=== PATIENT | male | born 1995 | race Caucasian/White ===

== ENCOUNTER 2016-11-05 22:46 | Inpatient (IN) ==
--- NOTE | 2016-11-06 00:31 | Emergency Department Note ---
Disposition Clinical Impression: Fever of unknown origin, Patient on antineoplastic chemotherapy regimen Testicular cancer Qualifiers: Descendance of testis: unspecified Laterality: unspecified laterality Qualified Code(s): C62.90 - Malignant neoplasm of unspecified testis, unspecified whether descended or undescended Leukocytosis Qualifiers: Leukocytosis type: unspecified Qualified Code(s): D72.829 - Elevated white blood cell count, unspecified Disposition: Admitted As Inpatient Condition: Fair Time of Disposition: 02:36 Fever HPI - General Chief Complaint: ED Fever Stated Complaint: fever on chemo Time Seen by Provider: 11/05/16 23:55 Source: patient Limitations: no limitations Nursing Notes Reviewed: Yes Vital Signs Reviewed: Yes - History of Present Illness HPI Narrative: 20-year-old male with a history of nonseminomatous testicular testicular cancer stage II, status post orchiectomy, on chemotherapy with bleomycin and cisplatin , at the [facility], patient bleomycin treatment 4 days ago on Thursday, at times white count was 13,000, he since had a fever at home of 101, URI symptoms including cough congestion low-grade fevers, mild nausea. Patient denies abdominal pain or dysuria. Oncologist is Dr. Hamilton. Pt Subjective Complaint: fever Onset (ago): day(s) Maximum Temperature Reported: 101 F Temperature Source: subjective Associated symptoms: Reports: denies other symptoms, nasal congestion, nausea. Denies: chest pain Improves with: acetaminophen Treatments prior to arrival fever: none - Related Data Allergies Allergy/AdvReac Type Severity Reaction Status Date / Time No Known Allergies Allergy Verified 11/05/16 22:50 All systems ED: reviewed and negative except as stated. Constitutional: Reports: fever, chills ENT ED: Denies: ear pain, throat pain Cardiovascular: Denies: chest pain, palpitations Respiratory: Reports: as per HPI, cough, dyspnea Gastrointestinal: Reports: as per HPI, nausea. Denies: abdominal pain Genitourinary: Denies: urgency, dysuria Musculoskeletal: Denies: back pain, neck pain Fever PMH - Past Medical History Medical history: Reports: cancer, malignancy - Social History Smoking Status: Never smoker Alcohol use: Reports: none Drug use: Reports: none Physical Exam Constitutional: shaved head, mildly tachycardic 20-year-old male in no acute distress, HEENT: NCAT, sclera anicteric, PERRLA bilaterally, normal external ears bilaterally, nasal septum nondeviated, average dentition, MMM Neck: normal inspection, neck is supple, trachea midline Resp: normal chest inspection, CTA bilaterally, no resp distress CV: Tachycardia no m/g/r GI: normal inspection, Soft, NTND, BS present Back: normal inspection, no tenderness to palpation Neuro: A&O3, no gross motor or sensory deficits bilaterally Skin: No rashes, skin warm, dry, intact - General Limitations: no limitations General appearance: alert, in no apparent distress Course Course Narrative: 20-year-old male with fever of unknown origin, chest x-ray urinalysis ordered basic lab work blood cultures and lactate - Consultations Consultation #1: I called [facility] #[phone] Hamilton patients oncologist, they will page Dr hamilton, to call back. Consultation #2: I did speak with Dr. Argueta call for Dr. Hamilton, he stated that the patient does have indication for admission, but does not need to be transferred to the [facility], I spoke with Dr. Davis at [place] our concologist , he recommends admission to the hospitalist, they are happy to see the patient consultation, for this discussion I started the patient on empiric Zosyn antibiotic, blood cultures were obtained, initial lactate was on elevated, Sirs criteria met but no source to show definitive sepsis suspect viral upper respiratory infection, however we will cover with broad-spectrum antibiotics at this time in case he is bacteremic Time: 02:35 Vital Signs Temperature 99.6 F 11/05/16 22:48 Pulse Rate 102 11/05/16 22:48 Respiratory Rate 18 11/05/16 22:48 Blood Pressure 120/70 11/05/16 22:48 O2 Sat by Pulse Oximetry 97 11/05/16 22:48 Temperature 98.3 F 11/06/16 02:00 Pulse Rate 71 11/06/16 02:00 Respiratory Rate 20 11/06/16 02:00 Blood Pressure 121/71 11/06/16 02:00 O2 Sat by Pulse Oximetry 97 11/06/16 02:00 Oxygen Delivery Oxygen Delivery Room Air Fever - MDM Narrative Medical decision making narrative: 20-year-old male with testicular cancer, recent chemotherapy leukocytosis started on empiric IV antibiotics IV fluids, admission to medicine service with oncology consultation - Differential Diagnosis Likely: cellulitis, fever of occult origin, community acquired pneumonia - Medical Records Medical records reviewed: Yes I reviewed the patient's medical records. - Lab Data Lab results reviewed: Yes I reviewed the patient's lab results. Result diagrams: 11/06/16 00:38 11/06/16 00:38 Lab Results 11/06/16 11/06/16 11/06/16 Range/Units 00:38 00:38 00:38 WBC 21.2 H (4.3-11.1) K/mcL RBC 4.53 (4.19-5.50) M/mcL Hgb 13.0 (12.9-16.9) g/dL Hct 38.2 (37.5-50.1) % MCV 84.3 (83.0-100.0) fL MCH 28.7 (28.0-33.3) pg MCHC 34.0 (31.6-35.5) g/dL RDW 12.6 (11.5-14.5) % Plt Count 215 (140-400) K/mcL MPV 8.0 L (9.4-12.4) fL Seg Neutrophils % 77.0 % Lymphocytes % 13.0 % Monocytes % 8.0 % Metamyelocytes % 2.0 H (0) % Neutrophils # 16.3 H (1.6-8.9) K/mcL Lymphocytes # 2.8 (0.6-4.6) K/mcL Monocytes # 1.7 H (0.0-1.3) K/mcL Reactive Lymphocytes Present A (Not Present) Toxic Granulation Present A (Not Present) Platelet Estimate Normal (Normal) Sodium 135 L (136-145) mEq/L Potassium 4.1 (3.5-4.5) mEq/L Chloride 101 (98-109) mEq/L Carbon Dioxide 23 (19-29) mEq/L BUN 15 (8-26) mg/dL Creatinine 0.87 (0.72-1.25) mg/dL Est GFR ( Amer) > 60 Est GFR (Non-Af Amer) > 60 BUN/Creatinine Ratio 17 (6-26) Glucose 110 H (70-99) mg/dL Calculated Osmolality 281 (280-300) Lactic Acid 0.9 (0.5-2.2) mmol/L Calcium 9.6 (8.6-10.8) mg/dL Total Bilirubin 0.3 (0.2-1.2) mg/dL Direct Bilirubin 0.2 (0.0-0.5) mg/dL Indirect Bilirubin 0.1 (0.0-1.2) mg/dL AST 23 (5-34) Units/L ALT 42 (0-55) Units/L Alkaline Phosphatase 131 H (38-126) Units/L Serum Total Protein 7.4 (6.0-8.3) g/dL Albumin 3.4 L (3.5-5.0) g/dL Globulin 4.0 H (2.4-3.5) g/dL Albumin/Globulin Ratio 0.9 L (1.1-2.2) Urine Color (Yellow) Urine Clarity (Clear) Urine pH (5.0-8.0) pH Units Ur Specific [place] (1.010-1.025) Urine Protein (Neg-Trace) mg/dL Urine Glucose (UA) (Normal) mg/dL Urine Ketones (Negative) mg/dL Urine Blood (Negative) Urine Nitrite (Negative) Urine Bilirubin (Negative) Urine Urobilinogen (Normal) mg/dL Ur Leukocyte Esterase (Negative) Ur Culture Indicated? (NO) 11/06/16 Range/Units 01:00 WBC (4.3-11.1) K/mcL RBC (4.19-5.50) M/mcL Hgb (12.9-16.9) g/dL Hct (37.5-50.1) % MCV (83.0-100.0) fL MCH (28.0-33.3) pg MCHC (31.6-35.5) g/dL RDW (11.5-14.5) % Plt Count (140-400) K/mcL MPV (9.4-12.4) fL Seg Neutrophils % % Lymphocytes % % Monocytes % % Metamyelocytes % (0) % Neutrophils # (1.6-8.9) K/mcL Lymphocytes # (0.6-4.6) K/mcL Monocytes # (0.0-1.3) K/mcL Reactive Lymphocytes (Not Present) Toxic Granulation (Not Present) Platelet Estimate (Normal) Sodium (136-145) mEq/L Potassium (3.5-4.5) mEq/L Chloride (98-109) mEq/L Carbon Dioxide (19-29) mEq/L BUN (8-26) mg/dL Creatinine (0.72-1.25) mg/dL Est GFR ( Amer) Est GFR (Non-Af Amer) BUN/Creatinine Ratio (6-26) Glucose (70-99) mg/dL Calculated Osmolality (280-300) Lactic Acid (0.5-2.2) mmol/L Calcium (8.6-10.8) mg/dL Total Bilirubin (0.2-1.2) mg/dL Direct Bilirubin (0.0-0.5) mg/dL Indirect Bilirubin (0.0-1.2) mg/dL AST (5-34) Units/L ALT (0-55) Units/L Alkaline Phosphatase (38-126) Units/L Serum Total Protein (6.0-8.3) g/dL Albumin (3.5-5.0) g/dL Globulin (2.4-3.5) g/dL Albumin/Globulin Ratio (1.1-2.2) Urine Color Yellow (Yellow) Urine Clarity Clear (Clear) Urine pH 6.0 (5.0-8.0) pH Units Ur Specific [place] 1.008 L (1.010-1.025) Urine Protein Negative (Neg-Trace) mg/dL Urine Glucose (UA) Normal (Normal) mg/dL Urine Ketones Negative (Negative) mg/dL Urine Blood Negative (Negative) Urine Nitrite Negative (Negative) Urine Bilirubin Negative (Negative) Urine Urobilinogen Normal (Normal) mg/dL Ur Leukocyte Esterase Negative (Negative) Ur Culture Indicated? NO (NO) - Radiology Data Radiology results reviewed: Yes I reviewed the patient's radiology results. Chest X-Ray 11/05/16 23:55 IMPRESSION: No acute process. D/ / Landry Thorne MD / Landry Thorne MD Interpreting Provider: Landry Thorne MD Attestation Statement - Attestation Attestation: I, Jose Alberto Medina MD, personally evaluated this patient and discussed their management with the resident physician. I reviewed the resident's note and agree with the documented findings, medical decision making, and plan of care. 20-year-old male with history of testicular cancer and on chemotherapy presents to the emergency department with a complaint of a fever. He last had chemotherapy 2 days ago. He states that this morning he had a temperature of 100.3 and has not felt well all day. He has had a cough and some chest congestion. No sputum production. This evening his temperature went up to 101 and he came here for evaluation. On examination patient is a well-developed well-nourished well-appearing young male in no acute distress. He is alert and oriented 3. There is no cyanosis or diaphoresis. Throat is clear with no injection or exudate and mucous membranes are moist. TMs are clear bilaterally. Neck supple and nontender with full range of motion. No meningismus. Chest is nontender to palpation. Breath sounds are clear and equal bilaterally. Heart regular rate and rhythm. Abdomen soft and nontender with normal bowel sounds. Blood cultures obtained. Labs reviewed. WBC 21.2. Chest x-ray negative. Dr. Eisenberg discussed the case with the oncologist on-call at [facility] he did not feel patient needed to be transferred admission here with IV antibiotics until cultures return and can then be switched to oral antibiotics. He also discussed with the oncologist fashion adviser here who agreed to see the patient in consultation. The hospitalist, Dr. Garcia, was consulted and accepted admission of the patient.
[2016-11-06 00:47] LABS: Hematocrit 38.2 % (37.5-50.1); Mean Corpuscular Hemoglobin 28.7 pg (28.0-33.3); Mean Corpuscular Volume 84.3 fL (83.0-100.0); Platelet Count 215 K/mcL (140-400); Red Blood Count 4.53 M/mcL (4.19-5.50); Red Cell Distribution Width 12.6 % (11.5-14.5)
[2016-11-06] MEDS: 0.9 % Sodium Chloride 1,000 ML IVC SCH ×3 (00:51→17:09)
[2016-11-06 01:01] LABS: Alanine Aminotransferase 42 Units/L (0-55); Albumin 3.4 g/dL (3.5-5.0); Albumin/Globulin Ratio 0.9 (1.1-2.2); Alkaline Phosphatase 131 Units/L (38-126); Aspartate Amino Transferase 23 Units/L (5-34); BUN/Creatinine Ratio 17 (6-26); Bilirubin,Direct 0.2 mg/dL (0.0-0.5); Bilirubin,Indirect 0.1 mg/dL (0.0-1.2); Bilirubin,Total 0.3 mg/dL (0.2-1.2); Blood Urea Nitrogen 15 mg/dL (8-26); Calcium 9.6 mg/dL (8.6-10.8); Carbon Dioxide 23 mEq/L (19-29); Chloride 101 mEq/L (98-109); Glucose 110 mg/dL (70-99); Osmolality,Calculated 281 (280-300); Potassium 4.1 mEq/L (3.5-4.5); Sodium 135 mEq/L (136-145); Total Protein 7.4 g/dL (6.0-8.3); eGFR For African Americans > 60; eGFR For Non-African Americans > 60
[2016-11-06 01:13] LABS: Lymphocytes # 2.8 K/mcL (0.6-4.6); Monocytes # 1.7 K/mcL (0.0-1.3); Neutrophils # 16.3 K/mcL (1.6-8.9)
[2016-11-06 01:14] LABS: Platelet Estimate Normal (Normal); Reactive Lymphocytes Present (Not Present); Toxic Granulation Present (Not Present)
[2016-11-06 01:27] LABS: Bilirubin,Urine Negative (Negative); Blood,Urine Negative (Negative); Clarity,Urine Clear (Clear); Color,Urine Yellow (Yellow); Glucose,Urine (UA) Normal (Normal); Ketones,Urine Negative (Negative); Leukocyte Esterase,Urine Negative (Negative); Nitrite,Urine Negative (Negative); Protein,Urine Negative (Neg-Trace); Specific Gravity,Urine 1.008 (1.010-1.025); Urobilinogen,Urine Normal (Normal)
[2016-11-06] MEDS ORDERED: Piperacillin/Tazobactam 3.375 GM in D5% in Water (Mini-Bag+) 100 ML IVPB ONE (02:04)
[2016-11-06] MEDS ORDERED: Acetaminophen 325 MG TABLET PO PRN (02:46)
[2016-11-06] MEDS ORDERED: Ondansetron 4 MG/2 ML VIAL IVP PRN (02:46)
[2016-11-06] MEDS ORDERED: Naloxone 0.4 MG/ML INJ IVP PRN (02:46)
--- NOTE | 2016-11-06 03:22 | Internal Med History&Physical ---
Date of Encounter: 11/06/16 Time of Encounter: 03:19 Assessment and Plan (1) SIRS (systemic inflammatory response syndrome) Current visit: Yes Status: Acute Patient reports a temperature of 101 degrees Fahrenheit at home. He has a white count of 21,000 and heart rate of greater than 90 on arrival to the emergency department. He is currently on chemotherapy after orchiectomy for his nonseminomatous testicular cancer. He has SIRS with suspected sepsis. Unknown source of infection. It could be possible it is vital versus related to scratches and bites from his dog. Patient has received intravenous Zosyn in the emergency room. He will be admitted to inpatient status. He will be given by mouth Levaquin and if he remains afebrile over the next 24 hours, can likely be discharged home tomorrow. Oncology has been consulted by emergency room. We will follow up the recommendations. (2) Testicular cancer Current visit: Yes Status: Chronic Status post orchiectomy and currently on chemotherapy. Oncology consultation. Qualifiers: Descendance of testis: descended Laterality: unspecified laterality Qualified Code(s): C62.10 - Malignant neoplasm of unspecified descended testis (3) Patient on antineoplastic chemotherapy regimen Current visit: Yes Status: Chronic Internal Medicine - H&P: HPI Chief complaint: Fever Admitted From: Emergency Dept Plans for Post Hospital Care: Home History of present illness: Mr. Pittman is a 20 year old male with a history of nonseminomatous testicular cancer who is currently on chemotherapy and presents to the emergency department due to fever and chills. The patient was in his usual state of health until 11/04/2016. On 11/05/2016 in the morning, the patient started experiencing fever and chills. On the evening of the same day, his temperature was 101 degrees Fahrenheit. He reports a dry cough but denies any sputum production. He reports intermittent chest pain in the middle of his chest that is worse with breathing and relieved with resting. He denies any palpitations or feeling lightheaded. He denies any shortness of breath, wheezing. He denies any headache or changes in his vision. He denies any nausea, vomiting, diarrhea, constipation or abdominal pain. He denies any urinary symptoms. Denies any rashes or bruising. The patient was in [place] early September. End of September, he was diagnosed with nonseminomatous testicular cancer. He underwent orchiectomy on 10/14/2016. Then, he began chemotherapy with bleomycin and cisplatin. He is currently finishing up his first cycle and he recently had chemotherapy on Thursday. In the emergency room, his oncologist at [facility] was contacted and they recommended admission but did not feel the need for the patient to be transferred to [facility]. Oncologist at [facility] was contacted and they recommended admission and that they would see the patient in consultation during the day. The patient has been given intravenous Zosyn for broad- spectrum coverage. Past Med Surg Social Fam HX - Past Medical History Attestation: Yes The following information was validated with the patient. Source: patient Medical history: cancer (Nonseminomatous testicular cancer), malignancy Psychiatric history: no psych history - Past Surgical History Surgical History: other (Orchiectomy) - Social History Smoking Status: Never smoker Smokeless Tobacco Status: No Alcohol use: none Drug use: none Current living situation: Home, With Family Activity Level: Independent ambulation, Very active Recent Out of Country Travel Within the Last 8 Weeks: Yes Exposure or Possible Exposure to Illness During Travel: No - Additional Family History Additional family history: Reviewed; not pertinent Internal Medicine - H&P: Meds Allergies No Known Allergies Allergy (Verified 11/05/16 22:50) All Systems PM: A 10-system review of systems was performed and is negative for pertinent findings except as documented above in the HPI. Review of systems: 10 systems have been reviewed and are negative except as mentioned in the history of present illness - Constitutional Vitals: Temp Pulse Resp BP Pulse Ox 98.3 F 71 20 121/71 97 11/06/16 02:00 11/06/16 02:00 11/06/16 02:00 11/06/16 02:00 11/06/16 02:00 Exam: Gen.: Lying in bed. No acute distress. Eyes: Pupils equal, round and reactive to light. Extraocular muscles intact. ENT: Moist mucous membranes. No oropharyngeal erythema or discharge. Chest: Clear to auscultation bilaterally. No adventitious sounds present. CVS: First and second heart sounds present. No murmurs, rubs or gallops. Abdomen: Soft, nontender, nondistended. Bowel sounds present. No hepatosplenomegaly. Skin: No decubitus ulcers appreciated. Scratch jones over his arms bilaterally (patient reports this is due to scratching by his 1-year-old dog) WHEEL PRESSER: No focal neuro deficits present. Psychiatric: Alert, awake and oriented to time, place and person. Lymphatic system: No lymphadenopathy appreciated Internal Med - H&P Results - Labs CBC & Chem 7: 11/06/16 00:38 11/06/16 00:38 - Diagnostic Studies Chest x-ray Status: image reviewed by me (No acute abnormalities detected)
[2016-11-06] MEDS: Acetaminophen 325 MG TABLET PO PRN ×2 (08:43→19:48)
[2016-11-06] MEDS ORDERED: Levofloxacin 750 MG/150 ML 750 MG/150 ML BAG IVPB SCH (12:00)
--- NOTE | 2016-11-06 13:41 | Oncology Inp Consult Note ---
Date of Encounter: 11/06/16 Time of Encounter: 12:00 Assessment and Plan (1) Fever Status: Acute Assessment and plan: Mr. Pittman appears to have a great fever without overt infection. He received Zosyn in the emergency department and has been transitioned to Levaquin which I think is reasonable. Agree with the excellent care he is received today by the hospitalist team. If he remains afebrile next 24 hours, I think he may be discharged on Levaquin 7 days. Qualifiers: Qualified Code(s): R50.9 - Fever, unspecified (2) Testicular cancer Status: Chronic Assessment and plan: For his stage II nonseminomatous testicular cancer, he will follow-up with Dr. Aguiar after discharge. Further oncologic care to be deferred to his outpatient care team. Qualifiers: Descendance of testis: descended Laterality: unspecified laterality Qualified Code(s): C62.10 - Malignant neoplasm of unspecified descended testis - Data of Consult Requesting Physician: Jarrod Saldana MD Primary Care Provider: PCP NO - Consult Narrative Reason for consult: Testicular cancer with fever History of present illness: Mr. Pittman is a 20 year old male who was recently diagnosed with nonseminomatous testicular cancer. He is status post orchiectomy and has been placed on cycle # 1 BEP and completed his first full cycle this past Thursday. Under care of Dr. Jaylen Aguiar at [facility]. Patient developed fever as well as cough with associated pleuritic chest pain prompting him to come to the emergency department. In the emergency department, his white blood cell count was elevated 21,000, chest x- ray and urinalysis were both clear of infection. He was tachycardic and secondary to presence of SIRS, admission was recommended. He has been placed on broad-spectrum antibiotics and admitted to the hospital. This morning, he is feeling a bit better. He did have a temperature of 100.4. He still has a mild cough which is nonproductive. Her chest pain is mild but present. He is tired as he had a long night in the emergency department. Past Med Surg Social Fam HX - Past Medical History Medical history: cancer, malignancy Psychiatric history: no psych history - Past Surgical History Surgical History: other - Social History Smoking Status: Never smoker Smokeless Tobacco Status: No Alcohol use: none Drug use: none Medications and Allergies Ibuprofen [Motrin] 400 mg PO Q6HR PRN 11/06/16 [History] LORazepam [Ativan] 0.5 mg PO Q6H PRN 11/06/16 [History] Prochlorperazine Maleate [Compazine] 10 mg PO Q6HR PRN 11/06/16 [History] Tramadol HCl [Ultram] 50 mg PO Q6H PRN 11/06/16 [History] Allergies No Known Allergies Allergy (Verified 11/05/16 22:50) All systems: reviewed and no additional remarkable complaints except as stated Constitutional: Present: chills, night sweats Oncology - Exam - Constitutional Vitals: Temp Pulse Resp BP Pulse Ox 98.6 F 71 15 123/67 97 11/06/16 11:43 11/06/16 11:43 11/06/16 11:43 11/06/16 11:43 11/06/16 11:43 - Head Head exam: Present: atraumatic, normal inspection, normocephalic - Eye Eye exam: Present: conjuntiva pink, sclera anicteric - ENT ENT exam: Present: mucous membranes moist, normal oropharynx - Neck Neck exam: Present: full ROM, normal inspection - Respiratory Respiratory exam: Present: CTAB - Cardiovascular Cardiovascular exam: Present: RRR - GI/Abdominal GI/Abdominal exam: Present: normal bowel sounds, soft - Extremities Exam Extremities exam: Present: normal inspection - Neurological Exam Neurological exam: Present: alert, CN II-XII intact, oriented X3 Oncology - Results - Labs Labs: Laboratory Results - last 48 hr 11/06/16 11/06/16 11/06/16 00:38 00:38 00:38 WBC 21.2 H RBC 4.53 Hgb 13.0 Hct 38.2 MCV 84.3 MCH 28.7 MCHC 34.0 RDW 12.6 Plt Count 215 MPV 8.0 L Seg Neutrophils % 77.0 Lymphocytes % 13.0 Monocytes % 8.0 Metamyelocytes % 2.0 H Neutrophils # 16.3 H Lymphocytes # 2.8 Monocytes # 1.7 H Reactive Lymphocytes Present A Toxic Granulation Present A Platelet Estimate Normal Sodium 135 L Potassium 4.1 Chloride 101 Carbon Dioxide 23 BUN 15 Creatinine 0.87 Est GFR ( Amer) > 60 Est GFR (Non-Af Amer) > 60 BUN/Creatinine Ratio 17 Glucose 110 H Calculated Osmolality 281 Lactic Acid 0.9 Calcium 9.6 Total Bilirubin 0.3 Direct Bilirubin 0.2 Indirect Bilirubin 0.1 AST 23 ALT 42 Alkaline Phosphatase 131 H Serum Total Protein 7.4 Albumin 3.4 L Globulin 4.0 H Albumin/Globulin Ratio 0.9 L Urine Color Urine Clarity Urine pH Ur Specific [place] Urine Protein Urine Glucose (UA) Urine Ketones Urine Blood Urine Nitrite Urine Bilirubin Urine Urobilinogen Ur Leukocyte Esterase Ur Culture Indicated? Infectious Dougherty Assay 11/06/16 11/06/16 01:00 11:44 WBC RBC Hgb Hct MCV MCH MCHC RDW Plt Count MPV Seg Neutrophils % Lymphocytes % Monocytes % Metamyelocytes % Neutrophils # Lymphocytes # Monocytes # Reactive Lymphocytes Toxic Granulation Platelet Estimate Sodium Potassium Chloride Carbon Dioxide BUN Creatinine Est GFR ( Amer) Est GFR (Non-Af Amer) BUN/Creatinine Ratio Glucose Calculated Osmolality Lactic Acid Calcium Total Bilirubin Direct Bilirubin Indirect Bilirubin AST ALT Alkaline Phosphatase Serum Total Protein Albumin Globulin Albumin/Globulin Ratio Urine Color Yellow Urine Clarity Clear Urine pH 6.0 Ur Specific [place] 1.008 L Urine Protein Negative Urine Glucose (UA) Normal Urine Ketones Negative Urine Blood Negative Urine Nitrite Negative Urine Bilirubin Negative Urine Urobilinogen Normal Ur Leukocyte Esterase Negative Ur Culture Indicated? NO Infectious Dougherty Assay Negative Consult Discharge Plan - Plan Referrals: NO,PCP [Primary Care Provider] -
[2016-11-06 19:23] LABS: Adenovirus Not Detected (Not Detect); Bordetella Pertussis Not Detected (Not Detect); Chlamydophila pneumoniae Not Detected (Not Detect); Coronavirus 229E Not Detected (Not Detect); Coronavirus HKU1 Not Detected (Not Detect); Coronavirus NL63 Not Detected (Not Detect); Coronavirus OC43 Not Detected (Not Detect); Human Metapneumovirus Not Detected (Not Detect); Human Rhinovirus/Enterovirus Not Detected (Not Detect); Influenza A Subtype 2009 H1 Not Detected (Not Detect); Influenza A Untypeable Not Detected (Not Detect); Influenza B Not Detected (Not Detect); Mycoplasma pneumoniae Not Detected (Not Detect); Parainfluenza Virus 1 Not Detected (Not Detect); Parainfluenza Virus 2 Not Detected (Not Detect); Parainfluenza Virus 3 Not Detected (Not Detect); Parainfluenza Virus 4 Not Detected (Not Detect); Respiratory Syncytial Virus Not Detected (Not Detect)
[2016-11-07] MEDS: 0.9 % Sodium Chloride 1,000 ML IVC SCH (04:00)
[2016-11-07 06:33] LABS: Basophils # 0.1 K/mcL (0.0-0.2); Basophils % 0.5 %; Eosinophils % 0.1 %; Hematocrit 39.2 % (37.5-50.1); Hemoglobin 13.1 g/dL (12.9-16.9); Immature Granulocytes % 4.6 % (0-4); Lymphocytes # 1.7 K/mcL (0.6-4.6); Lymphocytes % 9.1 %; Mean Corpuscular HGB Conc 33.4 g/dL (31.6-35.5); Mean Corpuscular Volume 83.8 fL (83.0-100.0); Mean Platelet Volume 7.9 fL (9.4-12.4); Monocytes # 1.4 K/mcL (0.0-1.3); Monocytes % 7.6 %; Neutrophils # 14.3 K/mcL (1.6-8.9); Platelet Count 224 K/mcL (140-400); Red Blood Count 4.68 M/mcL (4.19-5.50); Segmented Neutrophils % 78.1 %
[2016-11-07 06:48] LABS: Alanine Aminotransferase 39 Units/L (0-55); Albumin 3.3 g/dL (3.5-5.0); Albumin/Globulin Ratio 0.8 (1.1-2.2); Alkaline Phosphatase 132 Units/L (38-126); Aspartate Amino Transferase 19 Units/L (5-34); BUN/Creatinine Ratio 8 (6-26); Bilirubin,Total 0.6 mg/dL (0.2-1.2); Blood Urea Nitrogen 7 mg/dL (8-26); Carbon Dioxide 26 mEq/L (19-29); Chloride 103 mEq/L (98-109); Globulin 4.3 g/dL (2.4-3.5); Glucose 103 mg/dL (70-99); Osmolality,Calculated 280 (280-300); Potassium 4.2 mEq/L (3.5-4.5); Sodium 136 mEq/L (136-145); Total Protein 7.6 g/dL (6.0-8.3); eGFR For African Americans > 60; eGFR For Non-African Americans > 60
[2016-11-07 08:15] VITALS: BP 124/72
[2016-11-07] MEDS ORDERED: levoFLOXacin 750 MG TABLET PO SCH (10:15)
--- NOTE | 2016-11-07 10:17 | Discharge Summary ---
Date of Encounter: 11/07/16 Time of Encounter: 10:14 - Discharge Diagnosis (1) SIRS (systemic inflammatory response syndrome) Priority: Primary Status: Acute Comments: unclear source, possible Sepsis secondary to acute bronchitis viral vs bacterial (2) Testicular cancer Priority: Secondary Status: Chronic Qualifiers: Descendance of testis: descended Laterality: unspecified laterality Qualified Code(s): C62.10 - Malignant neoplasm of unspecified descended testis (3) Leukocytosis Priority: Secondary Status: Acute Qualifiers: Leukocytosis type: unspecified Qualified Code(s): D72.829 - Elevated white blood cell count, unspecified (4) Fever Priority: Primary Status: Acute Qualifiers: Fever type: due to other condition Qualified Code(s): R50.81 - Fever presenting with conditions classified elsewhere - Discharge Medications Prescriptions: levoFLOXacin [Levaquin] 750 mg PO DAILY #5 tablet Home Medications: Ibuprofen [Motrin] 400 mg PO Q6HR PRN 11/06/16 [History] LORazepam [Ativan] 0.5 mg PO Q6H PRN 11/06/16 [History] Prochlorperazine Maleate [Compazine] 10 mg PO Q6HR PRN 11/06/16 [History] Tramadol HCl [Ultram] 50 mg PO Q6H PRN 11/06/16 [History] Acetaminophen [Tylenol] 650 mg PO Q6HR PRN #0 tablet 11/07/16 [Rx] levoFLOXacin [Levaquin] 750 mg PO DAILY #5 tablet 11/07/16 [Rx] Allergies/Adverse Reactions: Allergies No Known Allergies Allergy (Verified 11/05/16 22:50) Date of admission: 11/06/16 02:46 Primary care physician: PCP NO - Patient Status Disposition: Home, Self-Care Condition: Fair - Discharge Instructions Follow Up With: NO,PCP [Primary Care Provider] - Additional Instructions: Follow with primary care physician within the next 7 days. Follow with oncologist at [facility], [place] within the next 2 weeks, complete 5 more days of Levaquin. - Diet and Activity Activity: increase activity as tolerated Diet: regular diet Hospital course: Mr. Pittman is a 20 year old male with a history of nonseminomatous testicular cancer who is currently on chemotherapy , presented to the emergency department due to fever and chills. The patient was in his usual state of health until . On 11/05/2016 in the morning, the patient started experiencing fever and chills. On the evening of the same day, his temperature was 101 degrees Fahrenheit. He reported a dry cough but denies any sputum production. He reported intermittent chest pain in the middle of his chest that was worse with breathing and relieved with resting. He denies any palpitations or feeling lightheaded. He denies any shortness of breath, wheezing. No increased chest pain when stretching. The patient was in [place] early September. End of September, he was diagnosed with nonseminomatous testicular cancer. He underwent orchiectomy on 10/14/2016. Then, he began chemotherapy with bleomycin and cisplatin. He finished up his first cycle on Thursday. In the emergency room, his oncologist at [facility] was contacted and they recommended admission but did not feel the need for the patient to be transferred to [facility]. Oncologist at [facility] was contacted and they recommended admission. The was given one dose of intravenous Zosyn. WBC was 21.2, was started on Levaquin , today his WBC decreased to 18.3. Had a fever of 100.2 yesterday, feels better. Respiratory panel was negative, Monotest was negative. Herpes antibodies are pending. Echocardiogram shows an ejection fraction of 65-70%, no other abnormalities and no evidence of pericarditis - Time Spent with Patient Total time spent providing and/or coordinating discharge services: Greater than 30 minutes (40 min) - Constitutional Vitals: Temp Pulse Resp BP Pulse Ox 98.7 F 74 14 124/72 96 11/07/16 08:03 11/07/16 08:03 11/07/16 08:03 11/07/16 08:03 11/07/16 08:03 - Head Head exam: Present: atraumatic, normocephalic - Eye Eye exam: Present: PERRL, conjuntiva pink, sclera anicteric Pupils: Present: PERRL - Neck Neck exam general surgery: Present: supple, trachea midline. Absent: lymphadenopathy - Respiratory Respiratory exam: Present: CTAB. Absent: accessory muscle use, rales, rhonchi, wheezes - Cardiovascular Cardiovascular exam: Present: RRR, +S1, +S2. Absent: diastolic murmur, gallop, rubs, systolic murmur - GI/Abdominal GI/Abdominal exam: Present: normal bowel sounds, soft, no peritoneal signs. Absent: distended, tenderness - Extremities Exam Extremities exam: Present: warm, radial pulses palpable and symetrical. Absent : calf tenderness, cyanotic, pedal edema - Neurological Exam Neurological exam: Present: CN II-XII intact, oriented X3, no focal deficits. Absent: pronater drift, facial droop, speech deficit - Skin Skin exam: Present: dry, intact
[2016-11-08 11:50] LABS: Herpes Simplex IgG (I&II COMB) 0.51 IV
== END 2016-11-07 15:01 | disposition home or self-care (01) | DRG 872 ==
LOC: 3ANU 22:46 → EMEROO 22:46 → 3ANU 11-06 03:29
PROVIDERS: ADMIT Internal Medicine Sleep Medicine; ATTEND Internal Medicine